=== PATIENT | male | born 1990 | race Caucasian/White ===

== ENCOUNTER → 2017-11-08 | Outpatient (CLI) | payer OTHER ==
--- NOTE | 2017-11-08 16:11 | XR ---
EXAMINATION TYPE: XR cervical spine limited DATE OF EXAM: 11/08/2017 TECHNIQUE: Frontal and lateral views of the cervical spine are obtained. HISTORY: [id number] cervicalgia COMPARISON: None FINDINGS: The cervical spine is visualized in its entirety from C1 thru the top of T1 level, it is s atisfactory in alignment without evidence of acute fracture or dislocation. The pre-vertebral soft t issue appears within normal limits. The C1-C2 articulation is within normal limits on the open mouth view. There is straightening of usual cervical lordosis. IMPRESSION: No acute fracture or malalignment is seen in the cervical spine. Straightening of the us ual cervical lordosis that may relate to muscular sprain or spasm.
== END | disposition home or self-care (01) ==
LOC: RADXRYALE 15:47
PROVIDERS: ATTEND Internal Medicine
DX: M54.2 Cervicalgia (principal)
CPT/HCPCS: 72040

== ENCOUNTER → 2018-09-29 | Outpatient (CLI) | payer OTHER ==
--- NOTE | 2018-09-29 17:04 | US ---
EXAMINATION TYPE: US bladder DATE OF EXAM: 09/29/2018 COMPARISON: NONE CLINICAL HISTORY: 28-year-old male R39.11 Urinary hesitancy. TECHNIQUE: Multiple sonographic images of the bladder are obtained. FINDINGS: No gross abnormality of the initial urine distended bladder. Post Void Residual Volume: 12.9 mL Color Doppler performed to assess ureteral jets. Bilateral Jets seen: Yes IMPRESSION: The slightly increased post void bladder volume of 13 mL still falls within acceptable li mits (<50 mL).
== END | disposition home or self-care (01) ==
LOC: RADUSWWP 15:24
PROVIDERS: ATTEND Internal Medicine
DX: R39.11 Hesitancy of micturition (principal)
CPT/HCPCS: 76857